=== PATIENT | female | born 1955 | race Caucasian/White ===

== ENCOUNTER 2023-01-03 10:26 | Day surgery (SDC) | payer MEDICAID ==
[~2023-01-03] VITALS: Ht 162.6 cm; Wt 74.8 kg
[~2023-01-03 10:26] MED LIST: ISOVUE-300 (IOPAMIDOL) 100 ML INFUS..BTL IV ONE; LIDOCAINE 2%, 20 ML MDV ONE; NORMAL SALINE 10 ML VIAL ONE; methylPREDNISolone ACETATE 40 MG/ML ONE
[2023-01-03] MEDS ORDERED: DIPHENHYDRAMINE INJ 50 MG/ML VIAL ONE (12:33)
[2023-01-03] MEDS: fentaNYL CITRATE/PF 100 MCG/2 ML AMP ONE ×2 (13:43→13:47)
[2023-01-03] MEDS: MIDAZOLAM HCL 5 MG/5 ML VIAL ONE ×2 (13:43→13:46)
[2023-01-03 18:49] VITALS: BP_SYST 133
== END 2023-01-03 15:01 | disposition home or self-care (01) ==
LOC: SDS 10:26 → SMU 10:29 → SDS 15:01
PROVIDERS: ATTEND Internal Medicine
DX: M51.16 Intervertebral disc disorders with radiculopathy, lumbar region (principal); I10 Essential (primary) hypertension; E11.9 Type 2 diabetes mellitus without complications; Z79.899 Other long term (current) drug therapy; Z20.822 Contact with and (suspected) exposure to COVID-19
CPT/HCPCS: 36415 ×2; 62323; 87426; U0003; J1200; J2001; J1030; J2250; J3010; Q9967; 76000

== ENCOUNTER 2023-03-28 08:39 | Day surgery (SDC) | payer MEDICAID ==
[~2023-03-28] VITALS: Ht 162.6 cm; Wt 74.8 kg
[2023-03-28] MEDS ORDERED: fentaNYL CITRATE/PF 100 MCG/2 ML AMP ONE (11:24)
[2023-03-28] MEDS ORDERED: DIPHENHYDRAMINE INJ 50 MG/ML VIAL ONE (11:24)
[2023-03-28] MEDS ORDERED: NORMAL SALINE 10 ML VIAL ONE (11:25)
[2023-03-28] MEDS ORDERED: IOHEXOL 300 mgI/mL, 50 mL INFUS..BTL IV ONE (11:25)
[2023-03-28] MEDS ORDERED: methylPREDNISolone ACETATE 40 MG/ML ONE (11:25)
[2023-03-28] MEDS ORDERED: LIDOCAINE 2%, 20 ML MDV ONE (11:25)
[2023-03-28] MEDS: MIDAZOLAM HCL 5 MG/5 ML VIAL ONE ×2 (12:28→12:32)
[2023-03-28 15:44] VITALS: BP_SYST 139
== END 2023-03-28 13:52 | disposition home or self-care (01) ==
LOC: SDS 08:39 → SMU 08:41 → SDS 13:52
PROVIDERS: ATTEND Internal Medicine
DX: M51.16 Intervertebral disc disorders with radiculopathy, lumbar region (principal); E11.9 Type 2 diabetes mellitus without complications; I10 Essential (primary) hypertension; Z20.822 Contact with and (suspected) exposure to COVID-19
CPT/HCPCS: 62323; 82962; J1200; J2001; J1030; J2250; J3010; Q9967; 76000